=== PATIENT | female | born 1950 | race Caucasian/White ===

== ENCOUNTER → 2016-04-26 | Outpatient (CLI) | payer MEDICARE ==
--- NOTE | ~2016-04-26 | ESTC ---
Cardiac Perfusion Imaging Demographics Patient Name EVERETT Rosario Gender Female Patient Number [id number] Race Visit Number [id number] Ethnicity Corporate ID Room Number Accession Number [id number] Height Date of 1950 Weight Age 65 year(s) BSA Referring Physician Mercedes [place] BMI MD Interpreting Mercedes [place] Date of study 04/26/2016 Physician Supervising /[email or web address] Mercedes MAST Technologist MD Ordering Physician Stress Chyna King senior controls technician [facility] Caitlin Eid Stress ECG Reading Mercedes [place] Nurse Latisha Van RN Physician MD Procedure Procedure Type: Nuclear Stress Test:Exercise, Cardiolite Stress Test Procedure Start time: 04/26/2016 08:02 Indications: Shortness of breath. Risk Factors The patient risk factors include:obesity. Conclusions Summary Perfusion Images: The overall quality of the study is good. Left ventricular cavity is noted to be normal on the stress and normal on the rest images. There is no evidence of abnormal lung activity. The right ventricle is not visualized an cannot be assessed. Impression ECG portion of exercise stress test is clinically negative for ischemia by diagnostic criteria. Patient exercised on the Kiran protocol for 7:20 minutes, achieving 9 METS, reached 96% of MPHR. Test terminated due to fatigue and CHATTERJEE. Myocardial perfusion imaging is normal. Overall left ventricular systolic function was normal without regional wall motion abnormalities. Calculated LVEF is 79% and TID ratio is 1.12. There are no previous studies for comparison. Stress Protocols Resting ECG NSR Peak HR:151 bpm Predicted HR: 156 bpm Max exercise: 9 METS % of predicted HR: 97 Reason for termination:Dyspnea ECG Findings [address] deprssions in inferior and v4-6 leads. Arrhythmias No rhythm abnormality. Symptoms Shortness of breath. Fatigue. Stress Interpretation The electrocardiographic portion of the stress test was negative for ischemia. Blood pressure response was normal, heart rate response was normal for exertion. The Bailey Treadmill Score was 2. This corresponds to a intermediate risk stress test. Imaging Results Summed scores - Summed stress score: 4 - Summed rest score: 2 - Summed difference score: 2 Stress ejection Ejection fraction:79 % EDV :62 ml ESV :13 ml Stroke volume :49 ml LV mass :103 gr Imaging Protocols Rest Stress Isotope:Tc99m Sestamibi IV Isotope: Tc99m Sestamibi IV Isotope dose:14.6 mCi Isotope dose:43.6 mCi Date:04/26/2016 07:34 Date:04/26/2016 08:54 Technique: SPECT Technique: Gated Supine SPECT Supine Scan Time:30 minutes post injection Scan Time:45-60 minutes post injection Medical History Admission Data Admission date: 04/26/2016 Admission Time: 07:15 Hospital Status: Outpatient. Signatures dtt: SERVANDO OTOOLE dtd: 04/26/16 [id number] Physician Self Edit
== END | disposition disaster alternative care site (69) ==
LOC: EDBD 07:00 → GRAD 07:00
DX: R06.09 Other forms of dyspnea (principal); R53.83 Other fatigue; I10 Essential (primary) hypertension; E66.9 Obesity, unspecified
CPT/HCPCS: A9500